=== PATIENT | female | born 1995 | race Caucasian/White ===

== ENCOUNTER 2018-08-28 12:36 | Emergency (ER) | payer OTHER ==
[~2018-08-28] VITALS: Ht 167.6 cm; Wt 56.7 kg
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
[2018-08-28 14:41] LABS: APPEARANCE,URINE CLEAR; BILIRUBIN, URINE NEGATIVE (NEGATIVE); COLOR,URINE PALE YELLOW; GLUCOSE, URINE (UA) NEGATIVE (NEGATIVE); KETONES,URINE NEGATIVE (NEGATIVE); LEUKOCYTE ESTERASE ,URINE 1+ (NEGATIVE); NITRITE,URINE NEGATIVE (NEGATIVE); PH,URINE 7 (4.5-8.0); PROTEIN,URINE NEGATIVE (NEGATIVE); UROBILINOGEN,URINE NORMAL MG/DL (0.0-1.0)
[2018-08-28 14:42] VITALS: BP 137/91
[2018-08-28] MEDS ORDERED: Azithromycin 250mg tab ORAL ONE (15:15)
[2018-08-28] MEDS ORDERED: NITROFURANTOIN100 M2 ORAL (15:22)
[2018-08-28] MEDS ORDERED: TYLENOL EXTRA500 MG ORAL (15:22)
[2018-08-28 16:18] VITALS: BP 128/88
== END 2018-08-28 16:30 | disposition home or self-care (01) ==
LOC: EMR 16:21
DX: T76.21XA Adult sexual abuse, suspected, initial encounter (principal); Z20.2 Contact with and (suspected) exposure to infections with a predominantly sexual mode of transmission; N39.0 Urinary tract infection, site not specified; S70.12XA Contusion of left thigh, initial encounter; S70.11XA Contusion of right thigh, initial encounter; S40.022A Contusion of left upper arm, initial encounter; S40.021A Contusion of right upper arm, initial encounter; Z88.0 Allergy status to penicillin; F31.9 Bipolar disorder, unspecified
CPT/HCPCS: 81003; 81025; 86592; 86703; 96372; 99284